=== PATIENT | female | born 2000 | race Caucasian/White ===

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

== ENCOUNTER 2018-03-08 13:03 | Emergency (ER) | payer OTHER ==
[2018-03-08 14:08] VITALS: BP 110/63
--- NOTE | 2018-03-08 14:56 | UC ---
Throat Pain/Nasal Orestes HPI - HPI Summary HPI Summary: 17 year old woman here in the clinic with a complaint of sore throat and feeling ill for 2 days. She is also having wheezing and some shortness of breath. She feels fatigued she has rhinorrhea. No chest congestion. She had childhood asthma but she has not had an asthma exacerbation in many years. - History of Current Complaint Chief Complaint: UCGeneralIllness Stated Complaint: SORE THROAT Time Seen by Provider: 03/08/18 14:43 Hx Last Menstrual Period: 02/15/18 Pain Intensity: 5 - Allergies/Home Medications Allergies/Adverse Reactions: Allergies Allergy/AdvReac Type Severity Reaction Status Date / Time No Known Allergies Allergy Verified 03/08/18 14:05 Home Medications: Home Medications Control Pill 1 tab PO DAILY 03/08/18 [History Confirmed 03/08/18] Dm/Pseudoephed/Acetaminophen [Day-Time Multi-Symptom Co] 1 cap PO ONCE 03/08/18 [History Confirmed 03/08/18] PMH/Surg Hx/FS Hx/Imm Hx Respiratory History: Asthma - childhood - Surgical History Surgical History: Yes Surgery Procedure, Year, and Place: thyroid cyst removed in 3rd grade - Family History Known Family History: Positive: Hypertension - Social History Occupation: Student Alcohol Use: Occasionally Substance Use Type: None Smoking Status (MU): Never Smoked Tobacco Review of Systems Constitutional: Chills Skin: Negative Eyes: Negative ENT: Nasal Discharge, Sinus Congestion Respiratory: Other - wheezing Cardiovascular: Negative Gastrointestinal: Negative Motor: Negative Neurovascular: Negative Musculoskeletal: Negative Neurological: Negative Psychological: Negative Is Patient Immunocompromised?: No All Other Systems Reviewed And Are Negative: Yes Physical Exam Triage Information Reviewed: Yes Appearance: Well-Appearing, No Pain Distress, Well-Nourished Vital Signs: Initial Vital Signs Temp 98.1 F 03/08/18 14:03 Pulse 64 03/08/18 14:03 Resp 14 03/08/18 14:03 BP 110/63 03/08/18 14:03 Pulse Ox 100 03/08/18 14:03 Vital Signs Reviewed: Yes Eye Exam: Normal ENT: Positive: Pharyngeal erythema, Nasal congestion, Nasal drainage Neck exam: Normal Neck: Positive: Supple Respiratory: Positive: Lungs clear, Normal breath sounds, No respiratory distress, No accessory muscle use Cardiovascular: Positive: RRR Abdominal Exam: Normal Abdomen Description: Positive: Nontender Bowel Sounds: Positive: Present Musculoskeletal Exam: Normal Musculoskeletal: Positive: Strength Intact, ROM Intact, No Edema Neurological Exam: Normal Neurological: Positive: Alert Psychological Exam: Normal Skin Exam: Normal Throat Pain/Nasal Course/Dx - Course Course Of Treatment: DISCUSSED VIRAL VERSES BACTERIAL INFECTION AND THE ROLE OF ANTIBIOTICS. THE PATIENT WISHES TO BE ON ANTIBIOTICS AT THIS TIME. - Differential Dx/Diagnosis Provider Diagnoses: PHARYNGITIS. BRONCHITIS WITH BRONCHOSPASM Discharge - Sign-Out/Discharge Documenting (check all that apply): Patient Departure All imaging exams completed and their final reports reviewed: No Studies - Discharge Plan Condition: Stable Disposition: HOME Prescriptions: Albuterol HFA INHALER* [Ventolin HFA Inhaler*] 2 puff INH Q4H PRN #1 mdi PRN Reason: Wheezing Azithromyxin ROS (NF) [Z-Ros (Zithromax) 250 mg tabs #6] 2 tab PO .TODAY, THEN 1 DAILY #6 tab Patient Education Materials: Pharyngitis (ED), Acute Bronchitis (ED), Bronchospasm (ED), Wheezing (ED) Referrals: [facility] [Outside] [facility] [Outside] Additional Instructions: FOLLOW UP WITH YOUR DOCTOR IF NOT COMPLETELY IMPROVED. GET RECHECKED FOR ANY WORSENING OF YOUR CONDITION OR QUESTIONS OR CONCERNS. - Billing Disposition and Condition Condition: STABLE Disposition: Home - Attestation Statements Document Initiated by Kassandra: No
== END 2018-03-08 15:04 | disposition home or self-care (01) ==
LOC: UCCORT 13:03
DX: J02.9 Acute pharyngitis, unspecified (principal); J20.9 Acute bronchitis, unspecified
CPT/HCPCS: 87651; 99212; G0463

== ENCOUNTER 2018-08-01 15:46 | Emergency (ER) | payer OTHER ==
[2018-08-01 17:09] VITALS: BP 121/72
--- NOTE | 2018-08-01 17:26 | UC ---
Head Injury HPI - HPI Summary HPI Summary: 17-year-old woman comes in with a chief complaint of head injury. She is on the [employer]. Yesterday while prepping for competition she struck both her forehead and her occiput on the ground while performing. She had had pain right away. She does feel slightly slower with her cognition. The light bothers her eyes slightly. She has about a 4-5 out of 10 headache. She is not nauseous she has not vomited. She has no weakness or numbness. She was slightly dizzy this morning when she woke up but she is not dizzy anymore. Her last concussion was in January 2018. She had 2 others in her younger years. She is on a serotonin reuptake inhibitor. She is not on any blood thinners. No neck pain denies any other injuries. - History Of Current Complaint Chief Complaint: UCHeadInjury Stated Complaint: S/P FALL(07/31/18)-HEAD COMPLAINT Time Seen by Provider: 08/01/18 17:02 Hx Last Menstrual Period: 07/05/18 Pain Intensity: 5 - Allergies/Home Medications Allergies/Adverse Reactions: Allergies Allergy/AdvReac Type Severity Reaction Status Date / Time No Known Allergies Allergy Verified 03/08/18 14:05 Home Medications: Home Medications Acetaminophen 650 mg PO ONCE 08/01/18 [History Confirmed 08/01/18] Depression Med 08/01/18 [History] Norgestimate-Ethinyl Estradiol [Ortho-Cyclen 28 Tablet] 1 each PO DAILY [History Confirmed 08/01/18] PMH/Surg Hx/FS Hx/Imm Hx Previously Healthy: Yes - Prior concussions - Surgical History Surgical History: Yes Surgery Procedure, Year, and Place: thyroid cyst removed in 3rd grade - Family History Known Family History: Positive: Hypertension - Social History Alcohol Use: None Substance Use Type: None Smoking Status (MU): Never Smoked Tobacco Review of Systems All Other Systems Reviewed And Are Negative: Yes Constitutional: Positive: Negative Skin: Positive: Negative Eyes: Positive: Photophobia ENT: Positive: Negative Respiratory: Positive: Negative Cardiovascular: Positive: Negative Gastrointestinal: Positive: Negative Motor: Positive: Negative Neurovascular: Positive: Negative Musculoskeletal: Positive: Negative Neurological: Positive: Headache Psychological: Positive: Negative Is Patient Immunocompromised?: No Physical Exam Triage Information Reviewed: Yes Appearance: Well-Appearing, No Pain Distress, Well-Nourished Vital Signs: Initial Vital Signs Temp 98.5 F 08/01/18 17:04 Pulse 53 08/01/18 17:04 Resp 16 08/01/18 17:04 BP 121/72 08/01/18 17:04 Pulse Ox 100 08/01/18 17:04 Vital Signs Reviewed: Yes Eye Exam: Normal Eyes: Positive: Conjunctiva Clear, Other: - PERRLA/EOMI ENT: Positive: Pharynx normal, TMs normal - No hemotympanum Neck exam: Normal Neck: Positive: Supple Respiratory: Positive: Lungs clear, Normal breath sounds, No respiratory distress Cardiovascular: Positive: RRR Musculoskeletal Exam: Normal Musculoskeletal: Positive: Strength Intact, ROM Intact Neurological Exam: Normal Neurological: Positive: Alert, Muscle Tone Normal Psychological Exam: Normal Psychological: Positive: Age Appropriate Behavior Skin Exam: Normal Head Injury Course/Dx - Course Course Of Treatment: Patient had a GCS of 15. No nausea or vomiting. She has mild photophobia no other vision changes no other neurologic symptoms. Her headache did improve with some acetaminophen. She reports her headaches about the same as yesterday. We discussed concussion treatment. We also discussed if she got worse she needs to get reevaluated. - Differential Dx/Diagnosis Provider Diagnosis: Concussion Discharge - Sign-Out/Discharge Documenting (check all that apply): Patient Departure All imaging exams completed and their final reports reviewed: No Studies - Discharge Plan Condition: Stable Disposition: HOME Patient Education Materials: Sports Concussion (ED) Forms: *Gen. Provider Communication, *Physical Education Release, *School Release Referrals: [facility] [Outside] Yuri Bo MD [Medical Doctor] - Additional Instructions: FOLLOW UP WITH YOUR SENIOR ENVIRONMENTAL CONSULTANT OR SPORTS MEDICINE, DR BO. GET RECHECKED FOR ANY WORSENING OF YOUR CONDITION; WEAKNESS, NUMBNESS, DIFFICULTY WITH VISION OR SPEECH, VOMITING OR QUESTIONS OR CONCERNS. - Billing Disposition and Condition Condition: STABLE Disposition: Home
== END 2018-08-01 17:34 | disposition home or self-care (01) ==
LOC: UCCORT 15:46
DX: S06.0X0A Concussion without loss of consciousness, initial encounter (principal); W22.8XXA Striking against or struck by other objects, initial encounter; Y93.41 Activity, dancing; Y92.9 Unspecified place or not applicable
CPT/HCPCS: 99211; G0463

== ENCOUNTER 2019-03-13 11:51 | Emergency (ER) | payer OTHER ==
[2019-03-13 12:36] VITALS: BP 107/64
--- NOTE | 2019-03-13 12:46 | UC ---
Throat Pain/Nasal Orestes HPI - HPI Summary HPI Summary: 18-year-old female comes in with chief complaint of one week of upper respiratory tract infection symptoms. Started with a runny nose and sore throat. Sore throats about a 4 out of 10. She does use albuterol for exercise- induced asthma but has not used it for this illness. She does have some wheezing and chest congestion. She did take some Claritin which in the very beginning did seem to help it doesn't help anymore. Symptoms remind her of when she's had bronchitis in the past. Patient has not measured any fevers however she has been waking up with sweats. - History of Current Complaint Chief Complaint: UCRespiratory Stated Complaint: SINUSES Time Seen by Provider: 03/13/19 12:38 Hx Last Menstrual Period: 01/17/19 Pain Intensity: 4 - Allergies/Home Medications Allergies/Adverse Reactions: Allergies Allergy/AdvReac Type Severity Reaction Status Date / Time No Known Allergies Allergy Verified 03/13/19 12:31 Home Medications: Home Medications Sertraline* [Zoloft*] 150 mg DAILY 03/13/19 [History Confirmed 03/13/19] PMH/Surg Hx/FS Hx/Imm Hx Previously Healthy: Yes Respiratory History: Asthma - Surgical History Surgical History: Yes Surgery Procedure, Year, and Place: thyroid cyst removed in 3rd grade - Family History Known Family History: Positive: Hypertension - Social History Alcohol Use: Occasionally Substance Use Type: None Smoking Status (MU): Never Smoked Tobacco Review of Systems All Other Systems Reviewed And Are Negative: Yes Constitutional: Positive: Other - SEE HPI Skin: Positive: Negative Eyes: Positive: Negative ENT: Positive: Sore Throat, Nasal Discharge, Sinus Congestion Respiratory: Positive: Cough, Other - SEE HPI Cardiovascular: Positive: Negative Gastrointestinal: Positive: Negative Motor: Positive: Negative Neurovascular: Positive: Negative Musculoskeletal: Positive: Negative Neurological: Positive: Negative Psychological: Positive: Negative Is Patient Immunocompromised?: No Physical Exam Triage Information Reviewed: Yes Appearance: No Pain Distress, Well-Nourished, Ill-Appearing - MILD Vital Signs: Initial Vital Signs Temp 98 F 03/13/19 12:32 Pulse 60 03/13/19 12:32 Resp 16 03/13/19 12:32 BP 107/64 03/13/19 12:32 Pulse Ox 100 03/13/19 12:32 Vital Signs Reviewed: Yes Eye Exam: Normal Eyes: Positive: Conjunctiva Clear ENT: Positive: Pharyngeal erythema, Nasal congestion, Nasal drainage, TMs normal Neck: Positive: Supple Respiratory: Positive: No respiratory distress, Wheezing Cardiovascular: Positive: RRR Musculoskeletal: Positive: Strength Intact, ROM Intact Neurological: Positive: Alert, Muscle Tone Normal Psychological: Positive: Age Appropriate Behavior Skin Exam: Normal Throat Pain/Nasal Course/Dx - Course Course Of Treatment: DISCUSSED VIRAL VERSES BACTERIAL INFECTIONS AND THE ROLE OF ANTIBIOTIC. PATIENT PREFERS TO BE ON ANTIBIOTICS AT THIS TIME. - Differential Dx/Diagnosis Provider Diagnosis: Bronchitis with bronchospasm Discharge ED - Sign-Out/Discharge Documenting (check all that apply): Patient Departure All imaging exams completed and their final reports reviewed: No Studies - Discharge Plan Condition: Stable Disposition: HOME Prescriptions: Albuterol HFA INHALER* [Ventolin HFA Inhaler*] 2 puff INH Q4H PRN #1 mdi PRN Reason: Wheezing Azithromyxin ROS (NF) [Z-Ros (Zithromax) 250 mg tabs #6] 2 tab PO .TODAY, THEN 1 DAILY #6 tab Patient Education Materials: Acute Bronchitis (ED), Bronchospasm (ED) Forms: *School Release Referrals: [facility] [Outside] Additional Instructions: FOLLOW UP WITH YOUR DOCTOR IF NOT COMPLETELY IMPROVED. GET RECHECKED SOONER IF WORSE OR ANY QUESTIONS OR CONCERNS. - Billing Disposition and Condition Condition: STABLE Disposition: Home
== END 2019-03-13 12:51 | disposition home or self-care (01) ==
LOC: UCCORT 11:51
DX: J20.9 Acute bronchitis, unspecified (principal)
CPT/HCPCS: 99212; G0463